=== PATIENT | male | born 1995 | race Caucasian/White ===

== ENCOUNTER 2017-10-16 10:12 | Emergency (ER) | payer SELFPAY ==
[2017-10-16] MEDS ORDERED: Dexamethasone 10 MG/ML VIAL ONE (11:17)
[2017-10-16] MEDS ORDERED: Ondansetron HCl/PF 4 MG/2 ML Vial ONE (11:17)
[2017-10-16 11:26] LABS: MONO NEGATIVE CONTROL ZONE White (Negative) (White); MONO POSITIVE CONTROL Pink Line (Positive) (PINK/RED); Mononucleosis NEGATIVE (NEGATIVE)
[2017-10-16 11:41] LABS: ALT (SGPT) 10 U/L (8-55); AST (SGOT) 13 U/L (5-34); Albumin 4.7 g/dL (3.5-5.0); Alkaline Phosphatase 95 U/L (40-150); Anion Gap 12 mmol/L (10-20); BUN (Urea Nitrogen) 11 mg/dL (8.9-20.6); Bilirubin, Total 1.1 mg/dL (0.2-1.2); Calc. Creatinine Clearance 0 mL/min (70-130); Calcium 10.1 mg/dL (7.8-10.44); Carbon Dioxide 25 mmol/L (22-29); Chloride 101 mmol/L (98-107); Estimated GFR-MDRD 77; Globulin 3.6 g/dL (2.4-3.5); Glucose 119 mg/dL (70-105); Potassium 4.4 mmol/L (3.5-5.1); Protein, Total 8.3 g/dL (6.0-8.3); Sodium 134 mmol/L (136-145)
[2017-10-16 11:49] LABS: Band 8 % (5-11); Hemoglobin 16.4 g/dL (14.0-18.0); Lymphocytes 2 % (21-51); MDiff Complete? YES; Mean Corpuscular HGB CONC 32.8 g/dL (32.0-36.0); Mean Corpuscular Hemoglobin 31.5 pg (27.0-31.0); Mean Corpuscular Volume 96.1 fl (80.0-94.0); Mean Platelet Volume 7.7 fL (7.4-10.4); Metamyelocyte 2 % (0-0); Monocytes 7 % (0-10); Neutrophil 81 % (42-75); PLT Morphology Comment Appears Adequate; Platelet Count 191 thou/uL (130-400); RBC Distribution Width 11.8 % (11.5-14.5); RBC Morphology Normal; White Blood Cell (WBC) Count 20.8 thou/uL (4.8-10.8)
[2017-10-16] MEDS ORDERED: Acetaminophen 500 MG TAB ONE (12:01)
== END 2017-10-16 13:26 | disposition home or self-care (01) ==
LOC: ERS 10:12
DX: J02.9 Acute pharyngitis, unspecified (principal); F17.210 Nicotine dependence, cigarettes, uncomplicated
CPT/HCPCS: 36415; 80053; 85025; 86308; 87081; 87430; 87804; 96361; 96374; 96375; J1100; J2405

== ENCOUNTER 2018-06-13 15:17 | Emergency (ER) | payer SELFPAY ==
[2018-06-13] MEDS ORDERED: HYDROcodone/Acetaminophen 5/325 mg Tablet ONE (16:06)
--- NOTE | 2018-06-13 17:16 | CT ---
CT OF HEAD NONCONTRAST: 06/13/18 INDICATION: Head injury with pain. Loss of consciousness. FINDINGS: There is no acute intracranial hemorrhage, mass effect, or midline shift. There is prominent opacific ation of the imaged paranasal sinuses. No depressed calvarial fracture or pneumocephalus is visualize d. IMPRESSION: 1. No acute intracranial hemorrhage or mass effect. 2. Prominent paranasal sinus opacification, incompletely evaluated. If there is concern for faci al trauma, dedicated CT of the face is warranted as this region is not reliably visualized on the bas is of this exam. POS: [facility]
--- NOTE | 2018-06-13 17:42 | CT ---
CT FACIAL BONES WITH CORONAL AND SAGITTAL REFORMATIONS: 06/13/18 HISTORY: Injury to the nose, facial pain. FINDINGS: There is a fracture involving the left nasal bone and the left zygomatic arch. There is mucosal disea se and fluid in the paranasal sinuses. No temporomandibular dislocation is seen. IMPRESSION: Fractures involving the left nasal bone and left zygomatic arch. The study was interpreted in consultation with Dr. Heidi Garcia (neuro rad) who concurs. POS: [facility]
== END 2018-06-13 16:44 | disposition home or self-care (01) ==
LOC: ERS 15:17
DX: S06.9X9A Unspecified intracranial injury with loss of consciousness of unspecified duration, initial encounter (principal); S02.2XXA Fracture of nasal bones, initial encounter for closed fracture; S02.40FA Zygomatic fracture, left side, initial encounter for closed fracture; S01.21XA Laceration without foreign body of nose, initial encounter; F17.210 Nicotine dependence, cigarettes, uncomplicated; W22.8XXA Striking against or struck by other objects, initial encounter
CPT/HCPCS: 12011; 70450; 70486

== ENCOUNTER 2019-04-26 04:07 | Emergency (ER) | payer SELFPAY ==
[2019-04-26] MEDS ORDERED: Ondansetron ODT 4 MG TAB ONE ×2 (04:43→05:44)
[2019-04-26] MEDS ORDERED: Ketorolac Tromethamine 30 MG/ML VIAL ONE ×2 (04:43→05:44)
[2019-04-26 05:14] LABS: #Basophils 0.1 thou/uL (0.0-0.2); #Eosinphils 0.4 thou/uL (0.0-0.7); #Lymphocytes 2.2 thou/uL (1.20-3.40); #Monocytes 0.7 thou/uL (0.11-0.59); #Neutrophils 6.8 thou/uL (1.40-6.50); %Basophils 0.7 % (0.0-1.0); %Eosinophils 3.7 % (0.0-10.0); %Lymphocytes 21.6 % (21.0-51.0); %Monocytes 6.9 % (0.0-10.0); %Neutrophils 67.1 % (42.0-75.0); Hemoglobin 15.6 g/dL (14.0-18.0); Mean Corpuscular HGB CONC 34.7 g/dL (32.0-36.0); Mean Corpuscular Hemoglobin 32.3 pg (27.0-31.0); Platelet Count 212 thou/uL (130-400); RBC Distribution Width 11.6 % (11.5-14.5); Red Blood Cell (RBC) Count 4.82 mill/uL (4.70-6.10); White Blood Cell (WBC) Count 10.1 thou/uL (4.8-10.8)
[2019-04-26 05:29] LABS: ALT (SGPT) 13 U/L (8-55); AST (SGOT) 18 U/L (5-34); Albumin 4.3 g/dL (3.5-5.0); Alkaline Phosphatase 68 U/L (40-110); Anion Gap 10 mmol/L (10-20); BUN (Urea Nitrogen) 18 mg/dL (8.9-20.6); Bilirubin, Total 0.5 mg/dL (0.2-1.2); Calc. Creatinine Clearance 0 mL/min (70-130); Calcium 8.9 mg/dL (7.8-10.44); Carbon Dioxide 30 mmol/L (22-29); Chloride 100 mmol/L (98-107); Estimated GFR-MDRD 74; Globulin 2.6 g/dL (2.4-3.5); Glucose 106 mg/dL (70-105); Lipase 60 U/L (8-78); Potassium 3.1 mmol/L (3.5-5.1); Protein, Total 6.9 g/dL (6.0-8.3); Sodium 137 mmol/L (136-145)
[2019-04-26] MEDS ORDERED: Mag-Al 1200 mg/1200 mg/30 ML UDCUP ONE (05:44)
[2019-04-26] MEDS ORDERED: Lidocaine Viscous Sol 2% 15 ml UD Cup ONE (05:44)
--- NOTE | 2019-04-26 08:00 | ULT ---
PRELIMINARY REPORT/[facility]/EMERGENCY AFTER HOURS PROCEDURE: PROCEDURE INFORMATION: Exam: US Abdomen Limited, Right Upper Quadrant Exam date and time: 04/26/2019 4:57 AM Clinical history: 24 years old, male; Nausea / vomiting; Abdominal pain; Epigastric pain TECHNIQUE: Imaging protocol: Real-time ultrasound of the abdomen with image documentation. Examination was focused on the right upper quadrant. COMPARISON: No relevant prior studies available. FINDINGS: The liver exhibits homogeneous echogenicity. Small amount of sludge within the gallbladder lumen. No cholelithiasis, gallbladder wall thickening, or pericholecystic fluid. Mildly dilated common bile duct measuring 6.7 mm. No intrahepatic biliary dilatation. Normal right kidney without hydronephrosis. Normal caliber upper abdominal aorta and IVC. Normal pancreas. No ascites. IMPRESSION: 1. Small amount of sludge within the gallbladder lumen. 2. No cholelithiasis, gallbladder wall thickening, or pericholecystic fluid. 3. Mildly dilated common bile duct measuring 6.7 mm. Thank you for allowing us to participate in the care of your patient. Dictated and Authenticated by: Jerry Camacho MD 04/26/2019 5:29 AM Central Time ([place] & [place]) FINAL REPORT: RIGHT UPPER QUADRANT ULTRASOUND: HISTORY: Epigastric abdominal pain with nausea and vomiting. COMPARISON: None. FINDINGS: Liver: Within normal limits. Gallbladder: Echogenic material is seen dependently within the gallbladder lumen likely related to sl udge. No gallbladder calculus is visualized. There is no gallbladder wall thickening or pericholecystic fluid identified. Common bile duct: There is mild dilatation of the common duct measuring 6.7 mm in diameter. Pancreas: Limited visualized portions of the pancreas demonstrate a normal sonographic appearance. Right kidney: Right kidney demonstrates a normal sonographic appearance. The right kidney measures 1 0 cm in length. IVC: The visualized IVC demonstrates a normal sonographic appearance. IMPRESSION: 1. Sludge in the gallbladder lumen. No gallbladder calculi are seen, and there is no gallbladder wall thickening or pericholecystic fluid. 2. Mildly dilated common bile duct measuring 6.7 mm. The exact etiology is unable to be determined on this exam. 3. Findings are in agreement with the preliminary report by [facility]. Transcribed Date/Time: 04/26/2019 8:34 AM
--- NOTE | 2019-04-26 08:20 | RAD ---
PORTABLE CHEST: HISTORY: Chest pain. FINDINGS: Lung hodges are clear. Heart and mediastinum appear normal. IMPRESSION: Negative chest. POS: [facility]
== END 2019-04-26 06:25 | disposition home or self-care (01) ==
LOC: ERS 04:07
DX: R07.89 Other chest pain (principal); R10.13 Epigastric pain; Z71.6 Tobacco abuse counseling; F17.210 Nicotine dependence, cigarettes, uncomplicated
CPT/HCPCS: 36415; 71045; 76705; 80053; 83690; 85025; 93005; 96372; 99406; J1885; Q0162

== ENCOUNTER 2020-10-25 23:06 | Emergency (ER) | payer SELFPAY ==
[2020-10-25] MEDS ORDERED: Fluorescein Opthalmic Strip ONE (23:26)
[2020-10-25] MEDS ORDERED: Proparacaine 0.5% Opth 15 ML BOT ONE (23:26)
[2020-10-25] MEDS ORDERED: HYDROcodone/Acetaminophen 10/325 mg Tablet ONE (23:48)
== END 2020-10-25 23:46 | disposition home or self-care (01) ==
LOC: ERS 23:06
DX: S05.01XA Injury of conjunctiva and corneal abrasion without foreign body, right eye, initial encounter (principal); F17.210 Nicotine dependence, cigarettes, uncomplicated; X58.XXXA Exposure to other specified factors, initial encounter
CPT/HCPCS: 99283

== ENCOUNTER 2020-11-15 01:41 | Emergency (ER) | payer SELFPAY ==
[2020-11-15] MEDS ORDERED: Lidocaine 1% w/Epinephrine 1:100K 20 ML VIAL ONE (02:01)
[2020-11-15] MEDS ORDERED: Triple Antibiotic Oint 1 GM Packet ONE (03:04)
== END 2020-11-15 03:09 | disposition home or self-care (01) ==
LOC: ERS 01:41
DX: S51.811A Laceration without foreign body of right forearm, initial encounter (principal); F17.210 Nicotine dependence, cigarettes, uncomplicated; W25.XXXA Contact with sharp glass, initial encounter
CPT/HCPCS: 12004

== ENCOUNTER 2020-12-02 07:54 | Emergency (ER) | payer SELFPAY ==
[2020-12-02 08:15] LABS: Bacteria/HPF None Seen HPF (None Seen); Bilirubin Negative (Negative); Blood, Urine Negative (Negative); Clarity Clear (Clear); Glucose, Urine (Dipstick) Normal (Negative); Ketone, Urine 10 mg/dL (Negative); Leukocyte Negative Leu/uL (Negative); Nitrite Negative (Negative); Protein, Urine (Dipstick) 30 mg/dL (Neg-Trace); RBC/HPF 0-3 HPF (0-3); Specific Gravity, Urine 1.036 (1.002-1.036); Squamous Epithelial 0-3 HPF (0-3); Urobilinogen Normal mg/dL (Less than 2); WBC/HPF None Seen HPF (0-3); pH, Urine 5.5 (5.0-9.0)
[2020-12-02 08:44] LABS: Globulin 3.1 g/dL (2.4-3.5); Protein, Total 7.4 g/dL (6.0-8.3)
[2020-12-02 08:45] LABS: ALT (SGPT) 12 U/L (8-55); AST (SGOT) 17 U/L (5-34); Albumin 4.4 g/dL (3.5-5.0); Alkaline Phosphatase 83 U/L (40-110); Anion Gap 16 mmol/L (10-20); BUN (Urea Nitrogen) 12 mg/dL (8.9-20.6); Bilirubin, Total 0.8 mg/dL (0.2-1.2); CK (CPK) 68 U/L (30-200); Calc. Creatinine Clearance 0 mL/min (70-130); Calcium 9.7 mg/dL (7.8-10.44); Carbon Dioxide 21 mmol/L (22-29); Chloride 104 mmol/L (98-107); Glucose 94 mg/dL (70-105); Lipase 19 U/L (8-78); Potassium 4.4 mmol/L (3.5-5.1); Sodium 137 mmol/L (136-145)
[2020-12-02] MEDS ORDERED: Ketorolac Tromethamine 30 MG/ML VIAL ONE (09:05)
[2020-12-02] MEDS ORDERED: Ondansetron PF 4 MG/2 ML Vial ONE (09:05)
[2020-12-02 10:28] LABS: #Lymphocytes 1.1 thou/uL (1.20-3.40); #Monocytes 0.8 thou/uL (0.11-0.59); #Neutrophils 8.1 thou/uL (1.40-6.50); %Basophils 0.4 % (0.0-1.0); %Eosinophils 0.4 % (0.0-10.0); %Lymphocytes 10.7 % (21.0-51.0); %Monocytes 7.6 % (0.0-10.0); %Neutrophils 80.9 % (42.0-75.0); Hemoglobin 16.8 g/dL (14.0-18.0); Mean Corpuscular HGB CONC 33.3 g/dL (32.0-36.0); Mean Corpuscular Hemoglobin 31.8 pg (27.0-31.0); Mean Corpuscular Volume 95.6 fL (78.0-98.0); Mean Platelet Volume 8.8 fL (7.4-10.4); Platelet Count 208 thou/uL (130-400); RBC Distribution Width 11.4 % (11.5-14.5); Red Blood Cell (RBC) Count 5.29 mill/uL (4.70-6.10)
== END 2020-12-02 10:13 | disposition home or self-care (01) ==
LOC: ERS 07:54
DX: K52.9 Noninfective gastroenteritis and colitis, unspecified (principal); F17.210 Nicotine dependence, cigarettes, uncomplicated
CPT/HCPCS: 36415; 80053; 81003; 81015; 82274; 82550; 83690; 85025; 96361; 96372; 96374; 96375; J0500; J1885; J2405

== ENCOUNTER 2022-07-17 11:57 | Emergency (ER) | payer SELFPAY ==
[~2022-07-17 11:57] MED LIST: Iopamidol-370 76% 500 ML 1 ML ONE
[2022-07-17 12:16] LABS: #Lymphocytes 0.8 thou/uL (1.20-3.40); #Monocytes 0.7 thou/uL (0.11-0.59); #Neutrophils 7.4 thou/uL (1.40-6.50); %Basophils 0.4 % (0.0-1.0); %Eosinophils 0.5 % (0.0-10.0); %Lymphocytes 9.3 % (21.0-51.0); %Monocytes 7.8 % (0.0-10.0); %Neutrophils 82.1 % (42.0-75.0); Hemoglobin 17.1 g/dL (14.0-18.0); Mean Corpuscular HGB CONC 35.2 g/dL (32.0-36.0); Mean Corpuscular Hemoglobin 33.5 pg (27.0-31.0); Mean Corpuscular Volume 95.1 fl (78.0-98.0); Mean Platelet Volume 7.6 fL (7.4-10.4); Platelet Count 195 10x3/uL (130-400); RBC Distribution Width 11.6 % (11.5-14.5)
[2022-07-17 12:39] LABS: ALT (SGPT) 19 U/L (8-55); AST (SGOT) 17 U/L (5-34); Albumin 4.8 g/dL (3.5-5.0); Alkaline Phosphatase 84 U/L (40-110); Anion Gap 13 mmol/L (10-20); BUN (Urea Nitrogen) 13 mg/dL (8.9-20.6); Bilirubin, Total 1.4 mg/dL (0.2-1.2); Calc. Creatinine Clearance 0 mL/min (70-130); Calcium 9.8 mg/dL (7.8-10.44); Carbon Dioxide 24 mmol/L (22-29); Chloride 103 mmol/L (98-107); Estimated GFR 78; Globulin 3.3 g/dL (2.4-3.5); Glucose 83 mg/dL (70-105); Potassium 4.4 mmol/L (3.5-5.1); Protein, Total 8.1 g/dL (6.0-8.3); Sodium 136 mmol/L (136-145)
[2022-07-17 13:01] LABS: Bilirubin Negative (Negative); Blood, Urine Negative (Negative); Clarity Clear (Clear); Glucose, Urine (Dipstick) Normal (Negative); Ketone, Urine 20 mg/dL (Negative); Leukocyte Negative Leu/uL (Negative); Nitrite Negative (Negative); Protein, Urine (Dipstick) 20 mg/dL (Neg-Trace); Specific Gravity, Urine 1.033 (1.002-1.036); Urobilinogen Normal mg/dL (Less than 2)
[2022-07-17] MEDS ORDERED: Ketorolac Tromethamine 30 MG/ML VIAL ONE (13:05)
[2022-07-17] MEDS ORDERED: Ondansetron PF 4 MG/2 ML Vial ONE (13:05)
== END 2022-07-17 15:06 | disposition home or self-care (01) ==
LOC: ERS 11:57
DX: R10.9 Unspecified abdominal pain (principal); F17.210 Nicotine dependence, cigarettes, uncomplicated
CPT/HCPCS: 36415; 74177; 80053; 81003; 85025; 96374; 96375; J1885; J2405; Q9967

== ENCOUNTER 2022-09-26 10:24 | Emergency (ER) | payer SELFPAY ==
[2022-09-26] MEDS ORDERED: Ketorolac Tromethamine 30 MG/ML VIAL ONE (11:58)
== END 2022-09-26 13:03 | disposition home or self-care (01) ==
LOC: ERS 10:24
DX: M25.511 Pain in right shoulder (principal); R07.81 Pleurodynia; F17.210 Nicotine dependence, cigarettes, uncomplicated
CPT/HCPCS: 96372; J1885

== ENCOUNTER 2023-06-18 19:43 | Emergency (ER) | payer SELFPAY ==
[~2023-06-18 19:43] MED LIST changes: +Iopamidol 370 76% 100 ML VIAL ONE; -Iopamidol-370 76% 500 ML 1 ML ONE
[2023-06-18 20:28] LABS: Bacteria/HPF None Seen HPF (None Seen); Bilirubin Negative (Negative); Blood, Urine Negative (Negative); CAUTI Indications for Culture Fever or rigors; Clarity Clear (Clear); Glucose, Urine (Dipstick) Normal (Negative); Ketone, Urine Greater than 150 mg/dL (Negative); Leukocyte Negative Leu/uL (Negative); Mucous/LPF Rare LPF (<2+); Nitrite Negative (Negative); Protein, Urine (Dipstick) 30 mg/dL (Neg-Trace); RBC/HPF 0-3 HPF (0-3); Specific Gravity, Urine 1.039 (1.002-1.036); Squamous Epithelial 0-3 HPF (0-3); WBC/HPF 0-3 HPF (0-3)
[2023-06-18 20:30] LABS: Urine Culture Reflex No No
[2023-06-18 20:48] LABS: #Basophils 0.1 thou/uL (0.0-0.2); #Monocytes 0.7 thou/uL (0.11-0.59); %Basophils 0.3 % (0.0-1.0); %Lymphocytes 3.9 % (21.0-51.0); %Monocytes 3.7 % (0.0-10.0); %Neutrophils 91.7 % (42.0-75.0); Hematocrit 48.5 % (42.0-52.0); Hemoglobin 16.6 g/dL (14.0-18.0); Mean Corpuscular HGB CONC 34.2 g/dL (32.0-36.0); Mean Corpuscular Volume 93.6 fl (78.0-98.0); Mean Platelet Volume 9.8 fL (7.4-10.4); Platelet Count 234 10x3/uL (130-400); Red Blood Cell (RBC) Count 5.18 mill/uL (4.70-6.10); White Blood Cell (WBC) Count 18.6 10x3/uL (4.8-10.8)
[2023-06-18 21:11] LABS: ALT (SGPT) 11 U/L (8-55); AST (SGOT) 13 U/L (5-34); Albumin 4.8 g/dL (3.5-5.0); Alkaline Phosphatase 69 U/L (40-110); Anion Gap 15 mmol/L (10-20); BUN (Urea Nitrogen) 11 mg/dL (8.9-20.6); Bilirubin, Total 1.4 mg/dL (0.2-1.2); Calc. Creatinine Clearance 0 mL/min (70-130); Calcium 9.7 mg/dL (7.8-10.44); Carbon Dioxide 21 mmol/L (22-29); Chloride 105 mmol/L (98-107); Estimated GFR 85; Globulin 2.9 g/dL (2.4-3.5); Glucose 100 mg/dL (70-105); Protein, Total 7.7 g/dL (6.0-8.3); Sodium 137 mmol/L (136-145)
[2023-06-18] MEDS ORDERED: Ketorolac Tromethamine 30 MG/ML VIAL ONE (21:18)
[2023-06-18] MEDS ORDERED: Ondansetron PF 4 MG/2 ML Vial ONE (21:18)
[2023-06-18] MEDS ORDERED: Dexamethasone 10 MG/ML VIAL ONE (21:18)
[2023-06-18 22:38] LABS: SARS-CoV-2 NAA Rapid Test Not Detected (NotDetected)
[2023-06-19] MEDS ORDERED: Bicillin LA 1.2 MILLION UNITS/2 ML SYRINGE ONE (00:19)
== END 2023-06-19 00:47 | disposition home or self-care (01) ==
LOC: ERS 19:43
DX: J02.0 Streptococcal pharyngitis (principal); F17.210 Nicotine dependence, cigarettes, uncomplicated; Z20.822 Contact with and (suspected) exposure to COVID-19
CPT/HCPCS: 36415; 74177; 80053; 81001; 85025; 87086; 87430; 87804; 96361; 96372; 96374; 96375; J0561; J1100; J1885; J2405; Q9967; U0002

== ENCOUNTER 2024-07-12 06:28 | Emergency (ER) | payer SELFPAY ==
[2024-07-12] MEDS ORDERED: Proparacaine 0.5% Opth 15 ML BOT ONE (06:37)
[2024-07-12] MEDS ORDERED: Fluorescein Opthalmic Strip ONE (06:37)
[2024-07-12] MEDS ORDERED: Ketorolac Tromethamine 30 MG (1 mL) VIAL ONE (08:41)
[2024-07-12] MEDS ORDERED: Boostrix 0.5 ML (Tdap) VIAL (>/=7 yrs of age) ONE (08:42)
== END 2024-07-12 08:50 | disposition home or self-care (01) ==
LOC: ERS 06:28
DX: S05.01XA Injury of conjunctiva and corneal abrasion without foreign body, right eye, initial encounter (principal); F17.210 Nicotine dependence, cigarettes, uncomplicated; W31.89XA Contact with other specified machinery, initial encounter
CPT/HCPCS: 70200; 90471; 90715; 96372; J1885

== ENCOUNTER 2024-07-18 22:09 | Emergency (ER) | payer SELFPAY ==
[2024-07-18] MEDS ORDERED: Ketorolac Tromethamine 30 MG (1 mL) VIAL ONE (23:16)
[2024-07-18] MEDS ORDERED: Acetaminophen 500 MG TAB ONE (23:16)
== END 2024-07-19 00:06 | disposition home or self-care (01) ==
LOC: ERS 22:09
DX: S60.221A Contusion of right hand, initial encounter (principal); S20.211A Contusion of right front wall of thorax, initial encounter; L03.113 Cellulitis of right upper limb; F17.210 Nicotine dependence, cigarettes, uncomplicated; Z55.0 Illiteracy and low-level literacy; V00.131A Fall from skateboard, initial encounter; Y93.51 Activity, roller skating (inline) and skateboarding
CPT/HCPCS: 71046; 93005; 96372; J1885

== ENCOUNTER 2024-09-04 17:11 | Emergency (ER) | payer OTHER, SELFPAY ==
[2024-09-04] MEDS ORDERED: Ondansetron ODT 4 MG TAB ONE (17:47)
[2024-09-04] MEDS ORDERED: Dexamethasone 4 mg/ml Vial ONE (17:47)
== END 2024-09-04 19:17 | disposition home or self-care (01) ==
LOC: ERS 17:11
DX: J11.1 Influenza due to unidentified influenza virus with other respiratory manifestations (principal); F17.210 Nicotine dependence, cigarettes, uncomplicated
CPT/HCPCS: 87428; J1100; Q0162